=== PATIENT | male | born 1965 | race Caucasian/White ===

== ENCOUNTER 2024-07-08 18:43 | Inpatient (IN) | payer BC, SELFPAY ==
[2024-07-08] VITALS (9 sets, daily range): BP systolic 122–181; BP diastolic 60–114; BMI 33.5; BMI 32.4; BMI 34.4
[2024-07-08 16:01] LABS: % Basophils 0.3 % (0-2); % Eosinophils 3.2 % (0-6); % Immature Granulocytes 0.3 % (0-0.5); % Lymphocytes 24.3 % (20.5-51.1); % Monocytes 8.3 % (1.7-9.3); % Neutrophils 63.6 % (42.2-75.2); Absolute Eosinophils 0.2 10^3/uL (0-0.7); Absolute Lymphocytes 1.6 10^3/uL (1.2-3.4); Absolute Monocytes 0.5 10^3/uL (0.1-0.6); Absolute Neutrophils 4.1 10^3/uL (1.4-6.5); Hematocrit 41.4 % (39.0-52.0); Hemoglobin 14.1 g/dL (13.0-18.0); Mean Corp Hgb Conc. 34.1 g/dL (33.0-37.0); Mean Corpuscular Hgb 29.5 pg (27.0-31.0); Mean Corpuscular Volume 86.6 fL (80.0-94.0); Mean Platelet Volume 9.8 fL (7.4-10.4); Nucleated Red Blood Cells % 0 % (-); Platelet Count 191 10^3/uL (130-400); Red Blood Cell Count 4.78 10^6/uL (4.70-6.10); Red Cell Dist. Width 12.1 % (11.5-14.5); White Blood Cell Count 6.5 10^3/uL (4.8-10.8)
[2024-07-08 16:13] LABS: INR 0.98; PT 13.3 Sec (11.4-14.6)
[2024-07-08 16:25] LABS: ALT (SGPT) 52 U/L (0-50); AST (SGOT) 26 U/L (17-59); Albumin 4.9 g/dl (3.5-5.0); Alkaline Phosphatase 52 U/L (38-126); Blood Urea Nitrogen 20 mg/dl (9-20); Calcium 9.9 mg/dl (8.4-10.2); Carbon Dioxide 26 mmol/L (22-30); Chloride 102 mmol/L (98-107); Glucose 97 mg/dl (70-99); Potassium 4.4 mmol/L (3.5-5.1); Sodium 144 mmol/L (135-145); Total Protein 7.7 g/dl (6.3-8.2); eGFR > 60.00
--- NOTE | 2024-07-08 17:03 | ED.GENMED ---
History of Present Illness
<Denise Wilson COMPLIANCE MONITOR - Last Filed: 07/08/24 20:20>
General
Chief Complaint: Cardiac Symptoms
Source: patient
Exam Limitations: none
Time Seen by Provider: 07/08/24 16:46
Nursing documentation reviewed up to this point in time: agreed with
History of Present Illness
History of Present Illness:
59-year-old male with history HTN, HLDcardiac stent x 2, of chronic throat tightness 'for years,' went to PCP this a.m. due to increasing tightness 'way down deep in my throat' gets worse with exertion, today worse with even minor exertion so went
to PCP, had EKG showing changes, sent to Cardiology office, then sent here for: for evaluation of exertional throat tightness with new EKG changes, NSR w/ inferior Qs but new ST abnormality, ST depression I, aVL. Currently pain-free but has been
having progressively worsening exertional throat tightness. No chest pain. Has history of CAD status post stents in 2020. . Denies tightness this time, 'only when I do anything.' Denies CP or SOB. Denies n/v/diaphoresis, palpitations,
lightheadedness.
Past History
<Denise Wilson COMPLIANCE MONITOR - Last Filed: 07/08/24 20:20>
Past History
ED Past Medical History: Other (Back pain)
ED Past Surgical History: None
Social History
Tobacco: Smoker (5 cigarettes a day)
Alcohol: Occasional
Personal:
Living: with family
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
Review of Systems
<Denise Wilson COMPLIANCE MONITOR - Last Filed: 07/08/24 20:20>
Review of Systems
Allergies reviewed?: Yes
All Other Systems: ROS reviewed and negative except as documented in HPI and ROS
Constitutional: Denies fever or fatigue
EENT: Reports other ('Tightness' in throat, with any even minor exertion, denies feeling it at this time)
Respiratory: Denies trouble breathing
Cardiac: Denies chest pain, diaphoresis or palpitations
ABD/GI: Denies abdominal pain, nausea or vomiting
Musculoskeletal: Reports no symptoms
Skin: Reports no symptoms
Neurological: Reports no symptoms
Phy Exam
<Denise Wilson, COMPLIANCE MONITOR - Last Filed: 07/08/24 20:20>
Physical Exam
Physical Exam:
GENERAL: No acute distress. A&Ox3.
CONSTITUTIONAL: Afebrile.
EYES: clear, conjunctivae normal
ENMT: moist mucus membranes, Pharynx nl
RESPIRATORY: Regular respirations, nonlabored, lungs clear.
CARDIOVASCULAR: Regular rate and rhythm, no murmurs, no rubs.
GI: Soft, nontender, normal BS
MUSCULOSKELETAL: Moves with ease. Well perfused.
SKIN: Warm, dry, pink
PSYCH: Normal mood and affect. Well kept, interactive and appropriate
NEUROLOGIC: Awake, alert and oriented. No focal neurological deficits
Course
<Denise Wilson, COMPLIANCE MONITOR - Last Filed: 07/08/24 20:20>
Orders/Labs/Results
Orders:
Orders
07/08/24 Breakfast
Cholesterol Lowering
At Your Request: Full Participation
Cholesterol Lowering: Sodium, 2 Gram
07/08/24 15:13
EKG [Electrocardiogram (*1)] Urgent
Reason for Study: Abnormal EKG
EKG- Treatment ONCE
07/08/24 15:55
Complete Blood Count/With Diff Urgent
Comprehensive Metabolic Panel Urgent
Prothrombin Time Urgent
Troponin I Urgent
07/08/24 16:53
EKG [Electrocardiogram (*1)] Urgent
Reason for Study: Chest Pain
EKG- Treatment ONCE
07/08/24 16:54
Aspirin 325 mg PO NOW STA
07/08/24 16:55
CR Chest Portable - 1 View Urgent
Comment:
Reason For Exam: throat pain, elevated Troponin
Reason Study Needs to be Portable: Patient Unstable
07/08/24 16:56
Nitroglycerin Sublingual [Nitrostat (Sublingual)] 0.4 mg SL NOW STA
07/08/24 17:24
CARDIOLOGY CONSULT Urgent
Consulting Provider: Talha Martinez
Was physician already notified: Yes
Reason for consult: subacute [place]
07/08/24 17:47
Heparin 4,000 units IV NOW STA
Nursing to Place Non Medication Order As Directed
Physician Order: PTT 6 hours after initial start of Heparin infusion
Above order entered?: Yes
07/08/24 17:59
PTT Urgent
Comment: Obtain baseline before beginning heparin infusion if not already collected
07/08/24 18:00
Heparin 50972 Units/250 ml 25,000 units in 250 ml IV PER PROTOCOL
Weight to be used for heparin protocol in kilograms (kg):: 100
Protocol:: Cardiac Tx/Acute Coronary
PTT Goal Range to be used:: PTT 73 to 111 seconds
Order type:: Initial
INITIAL Infusion Dose (UNITS/KG/hr) & then follow protocol:: 12 units/kg/hr
Infusion Dose in UNITS/hr & then follow protocol (UNITS/hr):: 1,000
INFUSION RATE in mL/hr & then follow protocol (mL/hr):: 10
PTT less than or equal to 64 seconds:: Increase rate by 200 units/hr (+ 2 mL/hr)
PTT 64.1 to 72.9 seconds:: Increase rate by 100 units/hr (+ 1 mL/hr)
PTT 73 to 111 seconds:: Target Range. No change in rate.
PTT 111.1 to 130.9 seconds:: Decrease rate by 100 units/hr (- 1 mL/hr)
PTT 131 to 199.9 seconds:: HOLD for 1 hr. Then decrease rate by 200 units/hr (- 2 mL/hr)
PTT greater than or equal to 200 seconds:: HOLD for 2 hrs & Notify Provider. Then decrease by 200 units/hr (-
2 mL/hr)
Lab follow-up:: Each change, PTT q6h until 2 consecutive are therapeutic. Then PTT
daily.
07/08/24 18:09
Admit/Transfer Patient As Directed
Co-Sign Provider:
Level of Care: Inpatient admission
Assign to:: IVU
Physician / Group: maia
Diagnosis: NSTEMI
Reason for Hospitalization: NSTEMI
Expected length of stay greater than two midnights?: Yes
ELOS- Estimated Length of Stay in days: 3
I certify the patient meets the requirements for IP care: Yes
07/08/24 18:10
PRN Pain Medication Management As Directed
May give lesser potent ordered pain med per pt: Yes
preference::
Protocol:: Medication orders for pain may be administered in a
manner that supports deferring to patient preference
when the pt is:
- Requesting an ordered lesser potent pain medication.
Least to most potent pain medications are defined
as: acetaminophen < NSAID < tramadol < opioids
(morphine, oxycodone, hydromorphone).
- Requesting a lesser dose of the same medication IF
ORDERED.
- Requesting a less intrusive route of administration
if both routes are prescribed by the provider (PO <
IV).
07/08/24 18:11
Code Status As Directed
Resuscitation Status: Full Code
07/08/24 18:26
PRN Pain Medication Management As Directed
May give lesser potent ordered pain med per pt: Yes
preference::
Protocol:: Medication orders for pain may be administered in a
manner that supports deferring to patient preference
when the pt is:
- Requesting an ordered lesser potent pain medication.
Least to most potent pain medications are defined
as: acetaminophen < NSAID < tramadol < opioids
(morphine, oxycodone, hydromorphone).
- Requesting a lesser dose of the same medication IF
ORDERED.
- Requesting a less intrusive route of administration
if both routes are prescribed by the provider (PO <
IV).
07/08/24 19:08
Acetaminophen [Tylenol] 650 mg PO Q6HPRN PRN
07/08/24 19:08
Echo 2D MMode Color/Doppler Routine
Reason for Study: chest pain
Heparin Protocol- PTT Orders As Directed
PTT per Heparin protocol: -Obtain CBC and baseline PTT - if not already collected.
-Obtain PTT 6 hours from start of infusion. Then, every 6 hours until 2 consecutive
PTT's are therapeutic. Then, PTT Daily.
-With each rate change, obtain PTT every 6 hours until 2 consecutive PTT's are
therapeutic. Then, PTT Daily.
Activity As Directed
Activity Level: As Tolerated
INT (Intravenous Needle Therapy) As Directed
Comment: maintain peripheral IV access
Intake/ Output As Directed
Frequency: Per unit guidelines
Notify MD As Directed
Notify physician if: PTT is greater than or equal to 200.
Vital Signs As Directed
Frequency: q4h
Weight As Directed
Frequency: Daily
07/08/24 19:24
Glycohemoglobin (HgbA1c) Routine
Troponin I Q3H
Comment: at admit & Q3H for 3 total including ED draws, obtain ECG with each level
07/08/24 20:00
Ascorbic Acid [Vitamin C] 500 mg PO BID
glucos sul [id number]-Mn [Glucosamine Chondroitin] 1 cap PO BID
vitamin D3-vitamin K2 (MK4) 1 tablet PO BID
07/08/24 22:00
Electrocardiogram (*1) Q6H
Reason for Study: Chest Pain
Comment: at admission and Q3H for total of 3, to be done with each troponin
omega 1-vsd-rbq-fish oil [Fish Oil] 1 cap PO TID
07/08/24 22:08
Troponin I Q3H
Comment: at admit & Q3H for 3 total including ED draws, obtain ECG with each level
07/09/24 00:24
PTT Urgent
07/09/24 04:00
Electrocardiogram (*1) Q6H
Reason for Study: Chest Pain
Comment: at admission and Q3H for total of 3, to be done with each troponin
07/09/24 Breakfast
NPO
Allow oral meds: Yes
Allow clear liquids: No
NPO for procedure after (time): 07/09/2024 0000
Cardiovascular Evaluation IN AM
07/09/24 08:00
Amlodipine [Norvasc] 5 mg PO DAILY
Aspirin Chewable [Low Strength Aspirin] 81 mg PO DAILY
Atorvastatin [Lipitor] 80 mg PO DAILY
Ezetimibe [Zetia] 10 mg PO DAILY
Famotidine [Pepcid] 20 mg PO DAILY
Multivitamin [Theragran] 1 tablet PO DAILY
lisinopril 40 mg PO DAILY
07/10/24 06:00
Complete Blood Count/No Diff Q2D
Comment: notify provider: Platelet count < 130,000 or decrease by 50% from baseline
07/10/24 11:00
DC Protocol for Telemetry ONCE
07/12/24 06:00
Complete Blood Count/No Diff Q2D
Comment: notify provider: Platelet count < 130,000 or decrease by 50% from baseline
07/14/24 06:00
Complete Blood Count/No Diff Q2D
Comment: notify provider: Platelet count < 130,000 or decrease by 50% from baseline
07/16/24 06:00
Complete Blood Count/No Diff Q2D
Comment: notify provider: Platelet count < 130,000 or decrease by 50% from baseline
07/18/24 06:00
Complete Blood Count/No Diff Q2D
Comment: notify provider: Platelet count < 130,000 or decrease by 50% from baseline
07/20/24 06:00
Complete Blood Count/No Diff Q2D
Comment: notify provider: Platelet count < 130,000 or decrease by 50% from baseline
07/22/24 06:00
Complete Blood Count/No Diff Q2D
Comment: notify provider: Platelet count < 130,000 or decrease by 50% from baseline
07/24/24 06:00
Complete Blood Count/No Diff Q2D
Comment: notify provider: Platelet count < 130,000 or decrease by 50% from baseline
Abnormal Lab Results
07/08/24
15:55
ALT 52 H U/L
(0-50)
Troponin I 3.640 H* ng/ml
07/08/24 15:55
07/08/24 15:55
Vital Signs
Initial and Last Documented VS:
Initial Vital Signs
Temp Pulse Resp BP Pulse Ox
98.4 F 52 16 148/85 100
07/08/24 15:18 07/08/24 15:18 07/08/24 15:18 07/08/24 15:18 07/08/24 15:18
Last Documented Vital Signs
Temp Pulse Resp BP Pulse Ox
98.4 F 69 18 161/102 96
07/08/24 15:18 07/08/24 19:30 07/08/24 19:30 07/08/24 19:00 07/08/24 19:30
License Examiner consulted with Physician
License Examiner consulted with physician?: Yes
Name of Physician Consulted: Tania
<Nohelia Mayo DO - Last Filed: 07/08/24 20:05>
Orders/Labs/Results
Orders:
Orders
07/08/24 Breakfast
Cholesterol Lowering
At Your Request: Full Participation
Cholesterol Lowering: Sodium, 2 Gram
07/08/24 15:13
EKG [Electrocardiogram (*1)] Urgent
Reason for Study: Abnormal EKG
EKG- Treatment ONCE
07/08/24 15:55
Complete Blood Count/With Diff Urgent
Comprehensive Metabolic Panel Urgent
Prothrombin Time Urgent
Troponin I Urgent
07/08/24 16:53
EKG [Electrocardiogram (*1)] Urgent
Reason for Study: Chest Pain
EKG- Treatment ONCE
07/08/24 16:54
Aspirin 325 mg PO NOW STA
07/08/24 16:55
CR Chest Portable - 1 View Urgent
Comment:
Reason For Exam: throat pain, elevated Troponin
Reason Study Needs to be Portable: Patient Unstable
07/08/24 16:56
Nitroglycerin Sublingual [Nitrostat (Sublingual)] 0.4 mg SL NOW STA
07/08/24 17:24
CARDIOLOGY CONSULT Urgent
Consulting Provider: Talha Martinez
Was physician already notified: Yes
Reason for consult: subacute [place]
07/08/24 17:47
Heparin 4,000 units IV NOW STA
Nursing to Place Non Medication Order As Directed
Physician Order: PTT 6 hours after initial start of Heparin infusion
Above order entered?: Yes
07/08/24 17:59
PTT Urgent
Comment: Obtain baseline before beginning heparin infusion if not already collected
07/08/24 18:00
Heparin 95139 Units/250 ml 25,000 units in 250 ml IV PER PROTOCOL
Weight to be used for heparin protocol in kilograms (kg):: 100
Protocol:: Cardiac Tx/Acute Coronary
PTT Goal Range to be used:: PTT 73 to 111 seconds
Order type:: Initial
INITIAL Infusion Dose (UNITS/KG/hr) & then follow protocol:: 12 units/kg/hr
Infusion Dose in UNITS/hr & then follow protocol (UNITS/hr):: 1,000
INFUSION RATE in mL/hr & then follow protocol (mL/hr):: 10
PTT less than or equal to 64 seconds:: Increase rate by 200 units/hr (+ 2 mL/hr)
PTT 64.1 to 72.9 seconds:: Increase rate by 100 units/hr (+ 1 mL/hr)
PTT 73 to 111 seconds:: Target Range. No change in rate.
PTT 111.1 to 130.9 seconds:: Decrease rate by 100 units/hr (- 1 mL/hr)
PTT 131 to 199.9 seconds:: HOLD for 1 hr. Then decrease rate by 200 units/hr (- 2 mL/hr)
PTT greater than or equal to 200 seconds:: HOLD for 2 hrs & Notify Provider. Then decrease by 200 units/hr (-
2 mL/hr)
Lab follow-up:: Each change, PTT q6h until 2 consecutive are therapeutic. Then PTT
daily.
07/08/24 18:09
Admit/Transfer Patient As Directed
Co-Sign Provider:
Level of Care: Inpatient admission
Assign to:: IVU
Physician / Group: maia
Diagnosis: NSTEMI
Reason for Hospitalization: NSTEMI
Expected length of stay greater than two midnights?: Yes
ELOS- Estimated Length of Stay in days: 3
I certify the patient meets the requirements for IP care: Yes
07/08/24 18:10
PRN Pain Medication Management As Directed
May give lesser potent ordered pain med per pt: Yes
preference::
Protocol:: Medication orders for pain may be administered in a
manner that supports deferring to patient preference
when the pt is:
- Requesting an ordered lesser potent pain medication.
Least to most potent pain medications are defined
as: acetaminophen < NSAID < tramadol < opioids
(morphine, oxycodone, hydromorphone).
- Requesting a lesser dose of the same medication IF
ORDERED.
- Requesting a less intrusive route of administration
if both routes are prescribed by the provider (PO <
IV).
07/08/24 18:11
Code Status As Directed
Resuscitation Status: Full Code
07/08/24 18:26
PRN Pain Medication Management As Directed
May give lesser potent ordered pain med per pt: Yes
preference::
Protocol:: Medication orders for pain may be administered in a
manner that supports deferring to patient preference
when the pt is:
- Requesting an ordered lesser potent pain medication.
Least to most potent pain medications are defined
as: acetaminophen < NSAID < tramadol < opioids
(morphine, oxycodone, hydromorphone).
- Requesting a lesser dose of the same medication IF
ORDERED.
- Requesting a less intrusive route of administration
if both routes are prescribed by the provider (PO <
IV).
07/08/24 19:08
Acetaminophen [Tylenol] 650 mg PO Q6HPRN PRN
07/08/24 19:08
Echo 2D MMode Color/Doppler Routine
Reason for Study: chest pain
Heparin Protocol- PTT Orders As Directed
PTT per Heparin protocol: -Obtain CBC and baseline PTT - if not already collected.
-Obtain PTT 6 hours from start of infusion. Then, every 6 hours until 2 consecutive
PTT's are therapeutic. Then, PTT Daily.
-With each rate change, obtain PTT every 6 hours until 2 consecutive PTT's are
therapeutic. Then, PTT Daily.
Activity As Directed
Activity Level: As Tolerated
INT (Intravenous Needle Therapy) As Directed
Comment: maintain peripheral IV access
Intake/ Output As Directed
Frequency: Per unit guidelines
Notify MD As Directed
Notify physician if: PTT is greater than or equal to 200.
Vital Signs As Directed
Frequency: q4h
Weight As Directed
Frequency: Daily
07/08/24 19:24
Glycohemoglobin (HgbA1c) Routine
Troponin I Q3H
Comment: at admit & Q3H for 3 total including ED draws, obtain ECG with each level
07/08/24 20:00
Ascorbic Acid [Vitamin C] 500 mg PO BID
glucos sul [id number]-[id number]-Mn [Glucosamine Chondroitin] 1 cap PO BID
vitamin D3-vitamin K2 (MK4) 1 tablet PO BID
07/08/24 22:00
Electrocardiogram (*1) Q6H
Reason for Study: Chest Pain
Comment: at admission and Q3H for total of 3, to be done with each troponin
omega 9-leu-jnd-fish oil [Fish Oil] 1 cap PO TID
07/08/24 22:08
Troponin I Q3H
Comment: at admit & Q3H for 3 total including ED draws, obtain ECG with each level
07/09/24 00:24
PTT Urgent
07/09/24 04:00
Electrocardiogram (*1) Q6H
Reason for Study: Chest Pain
Comment: at admission and Q3H for total of 3, to be done with each troponin
07/09/24 Breakfast
NPO
Allow oral meds: Yes
Allow clear liquids: No
NPO for procedure after (time): 07/09/2024 0000
Cardiovascular Evaluation IN AM
07/09/24 08:00
Amlodipine [Norvasc] 5 mg PO DAILY
Aspirin Chewable [Low Strength Aspirin] 81 mg PO DAILY
Atorvastatin [Lipitor] 80 mg PO DAILY
Ezetimibe [Zetia] 10 mg PO DAILY
Famotidine [Pepcid] 20 mg PO DAILY
Multivitamin [Theragran] 1 tablet PO DAILY
lisinopril 40 mg PO DAILY
07/10/24 06:00
Complete Blood Count/No Diff Q2D
Comment: notify provider: Platelet count < 130,000 or decrease by 50% from baseline
07/10/24 11:00
DC Protocol for Telemetry ONCE
07/12/24 06:00
Complete Blood Count/No Diff Q2D
Comment: notify provider: Platelet count < 130,000 or decrease by 50% from baseline
07/14/24 06:00
Complete Blood Count/No Diff Q2D
Comment: notify provider: Platelet count < 130,000 or decrease by 50% from baseline
07/16/24 06:00
Complete Blood Count/No Diff Q2D
Comment: notify provider: Platelet count < 130,000 or decrease by 50% from baseline
07/18/24 06:00
Complete Blood Count/No Diff Q2D
Comment: notify provider: Platelet count < 130,000 or decrease by 50% from baseline
07/20/24 06:00
Complete Blood Count/No Diff Q2D
Comment: notify provider: Platelet count < 130,000 or decrease by 50% from baseline
07/22/24 06:00
Complete Blood Count/No Diff Q2D
Comment: notify provider: Platelet count < 130,000 or decrease by 50% from baseline
07/24/24 06:00
Complete Blood Count/No Diff Q2D
Comment: notify provider: Platelet count < 130,000 or decrease by 50% from baseline
Abnormal Lab Results
07/08/24
15:55
ALT 52 H U/L
(0-50)
Troponin I 3.640 H* ng/ml
07/08/24 15:55
07/08/24 15:55
Vital Signs
Initial and Last Documented VS:
Initial Vital Signs
Temp Pulse Resp BP Pulse Ox
98.4 F 52 16 148/85 100
07/08/24 15:18 07/08/24 15:18 07/08/24 15:18 07/08/24 15:18 07/08/24 15:18
Last Documented Vital Signs
Temp Pulse Resp BP Pulse Ox
98.4 F 69 18 161/102 96
07/08/24 15:18 07/08/24 19:30 07/08/24 19:30 07/08/24 19:00 07/08/24 19:30
<Denise Wilson COMPLIANCE MONITOR - Last Filed: 07/08/24 20:20>
MDM/Problems Addressed
MDM/Problems Addressed:
59-year-old male with history HTN, HLDcardiac stent x 2, of chronic throat tightness 'for years,' went to PCP this a.m. due to increasing tightness 'way down deep in my throat' gets worse with exertion, today worse with even minor exertion so went
to PCP, had EKG showing changes, sent to Cardiology office, then sent here for: for evaluation of exertional throat tightness with new EKG changes, NSR w/ inferior Qs but new ST abnormality, ST depression I, aVL. Currently pain-free but has been
having progressively worsening exertional throat tightness. No chest pain. Has history of CAD status post stents in 2020. . Denies tightness this time, 'only when I do anything.' Denies CP or SOB. Denies n/v/diaphoresis, palpitations,
lightheadedness.
Dr. Marin at bedside.
Troponin 3.640.
Gave ASA and NTG.
Consulted Division Chair Dr. Mckeon who requests admit to Hospitalist for subacute [place] and Heparin drip.
<Nohelia Mayo DO - Last Filed: 07/08/24 20:05>
*Critical Care Note
Total Time (30-74mins, 75-104mins- exclusive of procedures): 38
comment:
The high probability of a clinically significant, sudden or life threatening deterioration of the cardiovascular/NSTEMI system(s) required my full and direct attention, intervention and personal management. The aggregate critical care time was 38
minutes. This time is in addition to time spent performing reported procedures but includes the following:
[x] Data Review and interpretation
[x] Patient assessment and monitoring of vital signs
[x] Documentation
[x] Medication orders and management
ED Attending Note
<Denise Wilson COMPLIANCE MONITOR - Last Filed: 07/08/24 20:20>
-
Portions of this chart may have been created with voice recognition software.� Occasional wrong word or��sound alike� substitutions may have occurred due to the inherent limitations of voice recognition software.
<Nohelai Mayo DO - Last Filed: 07/08/24 20:05>
ED Attending Note
Patient seen and examined by attending physician: Yes
I performed the substantive portion of visit, reviewed & personally made and approve the management plan that is documented in note by myself or ARIANA.: Yes
I performed a history and physical exam of patient and discussed management with resident, I reviewed resident's note and agree with documented findings and plan of care.: Yes
ED Attending Note:
59-year-old male with significant cardiac history including stents, hypertension, hyperlipidemia presenting to the emergency department for abnormal EKG. Patient went to his doctor with complaint of 'deep throat 'pain every time he exerts himself.
Reports been ongoing since the summertime, however has been progressively worsening with within the past week. Notes that he has a bleeding time he exerts himself. At the doctor's office, that showed ST elevation inferiorly, sent to the emergency
department for concern of acute ischemia. On arrival to the hospital, patient presently denying any acute chest pain or difficulty breathing. He has no acute complaints other than the throat pain that he feels with exertion. Vital signs
significant for hypertension. Patient notes compliance with his medications.
On exam patient is resting comfortably with unremarkable cardiac and pulmonary exam. EKG repeated upon arrival, again abnormal with ST elevations inferiorly and minimal ST depression to aVL. Patient initially seen in triage, laboratory analysis
obtained including troponin. Troponin noted to be elevated. At this time concern for NSTEMI. Plan for cardiac consultation. Will administer aspirin and nitro for blood pressure purposes.
17:20 - In discussion with cardiology, agrees NSTEMI. Plan for heparin drip and cardiac consultation, likely catheterization
Discharge Plan
Departure
Patient Disposition: Admit
Date of Disposition: 07/08/24
Time of Disposition: 17:56
Admit to: Telemetry
Presentation/result/management discussed w/ accepting MD/DO: Hospitalist
Condition: Good
Discharge Problem:
Myocardial infarction
Interventions
Interventions:
*Risk Screen - Suicide Last Done: 07/08/24 15:18
*General Assessment Last Done: 07/08/24 15:18
*Neglect/Abuse Screening Last Done: 07/08/24 15:18
*ED COVID-19 Vaccine History Last Done: 07/08/24 15:18
ED- Pulmonary Assessment Last Done: 07/08/24 16:45
ED- Cardiac Assessment Last Done: 07/08/24 16:45
[2024-07-08] MEDS: NITROSTAT (SUBLINGUAL) 0.4 MG SL (17:06)
[2024-07-08] MEDS: ASPIRIN 325 MG PO (17:06)
--- NOTE | 2024-07-08 17:57 | HPS.HSE ---
Addendum entered and electronically signed by Ever Dejesus MD 07/08/24 18:26:
Chest x-ray was clear.
History of tobacco abuse would recommend outpatient follow-up with primary doctor pulmonary for lung cancer screening eventually.
Addendum entered and electronically signed by Ever Dejesus MD 07/08/24 18:24:
I saw and examined the patient.
The DISTRIBUTION OPERATION SUPERVISOR's note was reviewed and I agree with the note.
Comment:
59-year-old male past medical history of CAD status post stents, hx tobacco abuse, primary hypertension, hyperlipidemia, lumbar radiculopathy, is presenting from cardiology office with complaints of throat tightness. States of throat tightness only
with exertion. Had intermittent chest pain which patient stated he related to musculoskeletal due to heavy lifting at work. Also states of intermittent pain chest epigastric which he related to heartburn. Patient with history of coronary artery
disease. Patient went to see primary doctor and was referred to cardiology. Patient with abnormal EKG. In the ER patient was found to have elevated troponin. Denies any odontophagia or dysphagia.
General: Well Developed, Well Nourished and No Apparent Distress
HEENT: NormoCephalic, Moist mucous membranes and Atraumatic
Respiratory: Clear, No stridor, speaking in full sentences.
Cardiac: S1/S2 and Regular Rhythm; No Murmur or Rub
GI: Soft, Non Tender, Non Distended and Normal Bowel Sounds; No Organomegaly
Rectal: Deferred by Provider
Musculoskeletal: No Clubbing, No Cyanosis and No Edema
Skin: No Rash
Neuro: AO x 3 and Nonfocal/grossly intact
Psych: Calm
Impression
NSTEMI
Primary hypertension
CAD status post x 2
Hyperlipidemia
Tobacco abuse
History of sinus bradycardia
Mildly abnormal liver enzymes
Plan
Heparin drip
Trend troponin
Echocardiogram
N.p.o. past midnight in case for cardiac catheterization
Continue home medication
Continue with aspirin
Check lipid panel and A1c
If no improvement in symptomology of throat tightness postcardiac stabilization then can consider video swallow evaluation.
DVT prophylaxis with heparin infusion
I spent a total of 80 minutes with the patient or on the floor. More than 50% of this time involved counseling and coordination of care.
Original Note:
Family Physician
-
Family Physician: EZIO Mcleod
Chief Complaint
-
Throat tightness
History of Present Illness
[age]-year-old male with history HTN, HLDcardiac stent x 2, of chronic throat tightness which got worse for past few weeks . Patient stated throat tightness with exertion. Patient denied any chest pain or short of breath . Patient denied any
headache or dizzy or syncope . Patient denied any fever, chills, cough congestion . Patient denied any abdominal pain, nausea, vomiting or diarrhea. Patient denied dysuria hematuria. He was evaluated by his PCP today, had EKG showing changes,
sent to Cardiology office, then sent here for: for evaluation of exertional throat tightness with new EKG changes.
Upon arrival noted to have elevated troponin. Admitting for further management. patient is initiated on heparin drip
Medical History
Past Medical History
Past Medical History: Reports Other
Additional Past Medical History:
Coronary artery disease
Hyperlipidemia
Hypertension
Past Surgical History: Reports Other
Additional Past Surgical History:
Cardiac stent
Social History
Tobacco: Former Smoker
Alcohol: None
Drug: None
Personal:
Living: With Family
Family History
Family History: Not pertinent
Allergies / Home Medications
Allergies reflects when Allergies were last updated in [facility].
Home Medications with original date entered in [facility]
Allergy/Medication List:
Allergies
Allergy/AdvReac Type Severity Reaction Status Date / Time
cat dander Allergy Unknown Verified 07/08/24 15:21
No Known Drug Allergies Allergy Unknown Verified 07/08/24 15:21
shellfish derived Allergy itchy eyes Verified 07/08/24 15:21
Yeast Allergy Itching Verified 07/08/24 15:21
Home Medications
aspirin 81 mg tablet,delayed release 81 mg PO DAILY 10/17/15
cholecalciferol (vitamin D3) 125 mcg (5,000 unit) capsule 5,000 unit PO DAILY 10/17/15
docosahexaenoic acid (dha)-epa 120 mg-180 mg capsule 1 cap PO TID 10/17/15
multivitamin (One-A-Day Essential tablet) 1 ea PO DAILY 10/17/15
Vitamin C: 1 tab PO TID 05/26/20
amlodipine 5 mg tablet 5 mg PO DAILY #30 tabs 11/18/20
atorvastatin 80 mg tablet 80 mg PO QPM #30 tabs 11/18/20
chlorthalidone 25 mg tablet 25 mg PO DAILY #30 tabs 11/18/20
clopidogrel 75 mg tablet 75 mg PO DAILY #90 tabs 11/18/20
lisinopril 40 mg tablet 40 mg PO DAILY #30 tabs 11/18/20
Review of Systems
-
Constitutional: Reports No Symptoms
EENT: Reports Other (Throat tightness)
Respiratory: Reports No Symptoms
Cardiac: Reports No Symptoms
Abdomen/GI: Reports No Symptoms
: Reports No Symptoms
Musculoskeletal: Reports No Symptoms
Skin: Reports No Symptoms
Neurological: Reports No Symptoms
Endocrine: Reports No Symptoms
Hematologic/Lymphatic: Reports No Symptoms
Psych: Reports No Symptoms
Physical Exam
Vital Signs
Vital Signs
Temp Pulse Resp BP Pulse Ox
98.4 F 60 22 166/77 98
07/08/24 15:18 07/08/24 17:45 07/08/24 17:45 07/08/24 17:12 07/08/24 17:45
Physical Exam
General: Well Developed, Well Nourished and No Apparent Distress
HEENT: NormoCephalic, Moist mucous membranes and Atraumatic
Respiratory: Clear
Cardiac: S1/S2 and Regular Rhythm; No Murmur or Rub
GI: Soft, Non Tender, Non Distended and Normal Bowel Sounds; No Organomegaly
Rectal: Deferred by Provider
Musculoskeletal: No Clubbing, No Cyanosis and No Edema
Skin: No Rash
Neuro: AO x 3 and Nonfocal/grossly intact
Psych: Calm
Laboratory Results
-
07/08/24 15:55
07/08/24 15:55
Laboratory Results
PT 13.3 Sec (11.4-14.6) 07/08/24 15:55
INR 0.98 07/08/24 15:55
Total Bilirubin 1.0 mg/dl (0.2-1.3) 07/08/24 15:55
AST 26 U/L (17-59) 07/08/24 15:55
ALT 52 U/L (0-50) H 07/08/24 15:55
Alkaline Phosphatase 52 U/L (38-126) 07/08/24 15:55
Troponin I 3.640 ng/ml H* 07/08/24 15:55
Data Reviewed
-
Lab Data: Labs Reviewed by me
Impression/Plan
-
# Throat tightness/elevated troponin likely NSTEMI
-Heparin drip continued
-Chest x-ray negative for acute disease
-EKG with sinus bradycardia
-Aspirin continued
-Will keep n.p.o. after midnight
-Cardiology consulted
-Trend troponin EKG
# Essential hypertension
-Norvasc, lisinopril continue with hold parameters
# Hyperlipidemia
-Zetia and atorvastatin continued
History of coronary artery disease
# Cardiac stents
# DVT prophylaxis
-Heparin drip-
# CODE STATUS
-Full code
[2024-07-08] MEDS: HEPARIN 4000 UNITS IV (18:21)
[2024-07-08 18:22] LABS: APTT 29.6 Sec (23.4-35.0)
[2024-07-08] MEDS: HEPARIN 25000 UNITS/250 ML IV (18:24)
--- NOTE | 2024-07-08 18:50 | CON.CAR ---
Consultation
Consultation Request
Date/Time Consultation Requested: 07/08/24 5:02pm
Date/Time Consultation Performed: 07/08/24 6:30pm
Requesting Provider: EZIO Garcia
Performing Provider: Dr. Michelle MD
Reason for Consultation: DE
Medical History
-
Chief Complaint: throat pain
History of Present Illness:
He has a past medical history of hypertension, hyperlipidemia, CAD and tobacco abuse. He also has a family history of coronary artery disease in his father and mother. Lipids had LDL of 183, HDL 38 and triglycerides of 141.
Stress echo November 16, 2020 had normal imaging at 9 METs, however he had shortness of breath and left shoulder pain with stress testing.
Cardiac catheterization 11/18/2020 revealed 70% mid LAD and 80% mid diagonal 2 stenosis.� He had successful drug-eluting stenting to both vessels. RCA had a long 30% distal stenosis. EF 70%.
He had been on dual antiplatelet therapy with Plavix and aspirin s/p stenting.��Plavix was stopped 05/2023.�
He presents today with continuing symptoms of progressive throat tightness. He has had the symptoms for several years and they have been worsening over the past several weeks. He gets a severe throat tightness with any exertional symptoms
especially walking up stairs, working, or walking with any pace. The symptoms worsened and he went to see his primary care physician today was found to have an abnormal EKG. He then was seen by cardiology and referred to emergency room for further
evaluation. He currently is pain-free but his symptoms have been worsening. He has noted some shortness of breath. He occasionally gets some right sided chest aches at times. He does not exercise much. He does work full-time. He denies any
orthopnea, PND, edema. He has no bleeding. He has no fevers or chills.
Past Medical History
Past Medical History: CAD (11/18/2020 revealed 70% mid LAD and 80% mid diagonal 2 stenosis.� He had successful drug-eluting stenting to both vessels. RCA had a long 30% distal stenosis. EF 70%.), HTN and Hypercholesterolemia
Social History
Tobacco: Former Smoker
Alcohol: Occasional
Drug: None
Personal:
Living: With Family
Employment: Employed
Family History
Family History: CAD and Hypertension
Allergies / Home Medications
Allergy/AdvReac Type Severity Reaction Status Date / Time
cat dander Allergy Unknown Verified 07/08/24 15:21
shellfish derived Allergy itchy eyes Verified 07/08/24 15:21
Yeast Allergy Itching Verified 07/08/24 15:21
�Medication �Instructions �Recorded �Confirmed �Type
aspirin 81 mg tablet,delayed 81 mg PO DAILY 10/17/15 07/08/24 History
release
amlodipine 5 mg tablet 5 mg PO DAILY #30 tabs 11/18/20 07/08/24 Rx
lisinopril 40 mg tablet 40 mg PO DAILY #30 tabs 11/18/20 07/08/24 Rx
ascorbic acid (vitamin C) 500 mg 500 mg PO BID 07/08/24 07/08/24 History
tablet (Vitamin C)
atorvastatin 80 mg tablet 80 mg PO DAILY 07/08/24 07/08/24 History
cholecalciferol (vit D3) 1,000 1 tab PO BID 07/08/24 07/08/24 History
unit-vitamin K2 (MK4) 100 mcg
tablet
ezetimibe 10 mg tablet 10 mg PO DAILY 07/08/24 07/08/24 History
glucosamine sulf dipot 1 cap PO BID 07/08/24 07/08/24 History
chlr,msm,chond 550 mg-C 30 mg-tima
1 mg capsule (Glucosamine
Chondroitin)
omega 3-pnu-shs-fish oil 1,000 mg 1 cap PO TID 07/08/24 07/08/24 History
(120 mg-180 mg) capsule (Fish Oil)
therapeutic multivitamin 1 tab PO DAILY 07/08/24 07/08/24 History
Review of Systems
-
History Source: Patient
Constitutional: Fatigue
EENT: Sore Throat
Respiratory: Trouble Breathing
Cardiac: Chest Pain
Abdomen/GI: Abdominal Pain (heartburn)
: No Symptoms
Musculoskeletal: No Symptoms
Skin: No Symptoms
Neurological: No Symptoms
Endocrine: No Symptoms
Hematologic/Lymphatic: No Symptoms
Physical Exam
Vital Signs
Temp Pulse Resp BP Pulse Ox
98.4 F 71 20 163/93 99
07/08/24 15:18 07/08/24 18:30 07/08/24 18:30 07/08/24 18:00 07/08/24 18:30
Lab Results
07/08/24 15:55
07/08/24 15:55
Troponin I 3.640 ng/ml H* 07/08/24 15:55
Physical Exam
General: Well Developed, Well Nourished and No Apparent Distress
HEENT: Normocephalic and Anicteric
Cardiac: S1/S2 and Regular Rhythm
GI: Soft, Non Tender and Non Distended
Musculoskeletal: No Clubbing and No Edema
Skin: Warm and Dry
Neuro: AO x 3
Hematologic/Lymphatic: No Lymphadenopathy
Psych: Calm
Impression / Plan
-
Assess:
NonSTEMI/unstable angina
History of CAD status post LAD/D1 stents 2020
Hypertension
Hyperlipidemia
Prior tobacco abuse
Cath 11/18/2020 revealed 70% mid LAD and 80% mid diagonal 2 stenosis.� He had successful drug-eluting stenting to both vessels. RCA had a long 30% distal stenosis. EF 70%.
PLan:
He presents with unstable angina and a non-STEMI. Continue aspirin and start IV heparin. With his multivessel disease I would hold off on restarting Plavix for now.
Plan will be for n.p.o. and cardiac cath in the a.m. Check echo in a.m.
Continue atorvastatin 80 mg daily. Check lipids.
Continue lisinopril and amlodipine. He has not tolerated beta-blockers in the past due to bradycardia. Will hold off for now.
Data Reviewed
-
EKG: Report Reviewed by me
Labs: Labs Reviewed by me
Old Records: Reviewed
[2024-07-08] MEDS: VITAMIN C 500 MG PO (21:16)
[2024-07-09] VITALS (13 sets, daily range): BP systolic 120–154; BP diastolic 65–101; BMI 33.8
--- NOTE | 2024-07-09 00:19 | PTCARENOTE ---
Rec'd pt as ED admit. Pt AAOx3, denies chest pain/tightness, denies any pain/discomfort at this time. Heparin gtt intact through L AC IV, see worklist. Pt ambulatory in room PRN with minimal assistance. EKG done with troponin per MD orders. VSS.
Call hackett within reach. Care ongoing.
[2024-07-09 00:36] LABS: APTT 36.9 Sec (23.4-35.0)
[2024-07-09 06:39] LABS: APTT 43.9 Sec (23.4-35.0)
[2024-07-09 06:57] LABS: HDL Cholesterol 30 mg/dl
[2024-07-09 07:07] LABS: LDL Cholesterol, Calculated 68 mg/dl; Total Cholesterol 119 mg/dl (50-199); Triglyceride 108 mg/dl (10-149); Very Low Density Lipoprotein 21 mg/dl (0-30)
[2024-07-09] MEDS: ZETIA 10 MG PO (08:27)
[2024-07-09] MEDS: NORVASC 5 MG PO (08:27)
[2024-07-09] MEDS: THERAGRAN 1 TABLET PO (08:27)
[2024-07-09] MEDS: ZESTRIL 40 MG PO (08:27)
[2024-07-09] MEDS: PEPCID 20 MG PO (08:27)
[2024-07-09] MEDS: LIPITOR 80 MG PO (08:28)
[2024-07-09] MEDS: LOW STRENGTH ASPIRIN 81 MG PO (08:28)
[2024-07-09 08:55] LABS: Glycohemoglobin (HgbA1c) 5.7 % (4.0-5.6)
--- NOTE | 2024-07-09 10:29 | PTCARENOTE ---
Assumed care of patient this morning. He is aaox3. Denies any chest pain or throat tightness. ECHO done at bedside. Pt's HR dropping into 40s at times when architectural technologist asked patient to hold his breath. Heparin infusion maintained, see flowsheet.
Patient to be transferred to IVU, report given.
--- NOTE | 2024-07-09 11:33 | PTCARENOTE ---
Rec'd pt from IMU. Oriented pt to room. AOX3 and pleasant. Tele- SB/SR. 50-60s. Assessment completed as documented. Heparin gtt infusing at 14ml/hr. Pt aware of NPO status for cath today. Currently in bed; call roxann w/in reach.
--- NOTE | 2024-07-09 12:16 | W.PN.HOSP.TC ---
Today's Communication/Plan
-
N.p.o. for cardiac catheterization
Continue with goal-directed medical therapy
Continue with aspirin
Await further cardiac catheterization results
Cardiology recs
Assessment / Plan
Assessment / Plan
#Unstable angina/NSTEMI
-Heparin drip continued
-Chest x-ray negative for acute disease
-EKG with sinus bradycardia
-Aspirin continued
-ECHO ventricular chamber size and function. EF 69%. Possible inferior wall hypokinesis. Normal diastolic function. Mild to moderate mitral regurgitation
-Cardiology consulted
-Cardiac catheterization today
-LDL 68. A1c 5.7
-Trop downtrended
# Essential hypertension
-Norvasc, lisinopril continue with hold parameters
# Hyperlipidemia
-Zetia and atorvastatin continued
CAD status post stents x 2
Continue with aspirin, Zetia, blood pressure control
Plavix per cardiology
History of sinus bradycardia
Monitor heart rate on telemetry
History of tobacco abuse
# DVT prophylaxis
-Heparin drip-
# CODE STATUS
-Full code
Discussed with patient spouse at bedside in detail
Anticipated Discharge: > 48 hours
Subjective/Interval History
-
Date of Service: July 09, 2024
denies any throat closing or chest pain
Objective Data
-
Labs:
Laboratory Results
07/09/24 07/09/24 07/09/24
00:12 06:21 12:45
APTT 36.9 H 43.9 H Pending
Vital Signs:
Vital Signs
Temp Pulse Resp BP Pulse Ox
98.2 F 63 16 130/89 97
07/09/24 11:22 07/09/24 11:23 07/09/24 11:22 07/09/24 11:23 02/12/25 11:23
I&O
07/08/24 07/09/24 07/10/24
06:59 06:59 06:59
Intake Total 144 / 144
Balance 144 / 144
Physical Exam
-
General: Well Developed and No Apparent Distress
HEENT: Normocephalic, Atraumatic and Moist Mucous Membranes
Respiratory: Clear to Auscultation
Cardiac: Regular Rhythm and S1/S2; Negative Murmur, Rub or Gallop
GI: Soft, Nontender, Nondistended and Normal Bowel Sounds; Negative Organomegaly
Rectal: Deferred by Provider
Musculoskeletal: No Clubbing, No Cyanosis and No Edema
Skin: Negative Rash
Neuro: Awake, AO x 3, No Motor Deficits and Nonfocal/Grossly Intact
Psych: Calm
[2024-07-09] MEDS: VITAMIN C 500 MG PO ×2 (13:10→20:22)
--- NOTE | 2024-07-09 13:39 | CM ---
Chart reviewed. Patient is independent of ADLS, lives with his in a 2 [address], 5 LUIS, 0 DME. Patient waiting for a cardiac cath. Plan is for the patient to return home. CM to follow
[2024-07-09 13:43] LABS: APTT 46.8 Sec (23.4-35.0)
[2024-07-09 16:10] LABS: ACT-LR - POC 285 Seconds (116-155)
[2024-07-09 16:38] LABS: ACT-LR - POC 303 Seconds (116-155)
--- NOTE | 2024-07-09 17:07 | ITS.CL.CATH ---
[employer] [facility] - Catheterization
Cardiac Catheterization
Procedure Report:
LEFT HEART CATHETERIZATION AND CORONARY INTERVENTION
Date of Procedure: July 09, 2024
Referring: Yung Martinez
PROCEDURES:
1. Left heart catheterization, coronary angiogram.
2. Ultrasound-guided access
3. Successful percutaneous coronary artery intervention of hazy, thrombotic 90% proximal to mid RCA (JOSH II flow) with 2 overlapping 3.5 x 30 mm and 2.75 x 22 mm Medtronic Washburn drug-eluting stent, postdilated with a 3.5 x 20 mm NC balloon at 18
uriah proximally and 3.0 x 20 mm NC balloon at 18 uriah distally using IVUS guidance with an excellent angiographic result and JOSH-3 flow restored.
4. Intravascular ultrasound (IVUS)
INDICATION: NSTEMI
ACCESS: Right radial artery, 6 Haitian sheath, under ultrasound guidance
Ultrasound was utilized for vascular access. The radial artery was visualized under ultrasound, and the vessel was patent and pulsatile. An image was stored permanently in the patient's medical record. Under direct ultrasound guidance, a 6 Haitian
sheath was inserted into the artery using a micropuncture kit through a modified Seldinger technique.
HEMODYNAMICS : (mmHg)
AO (s/d) : 120/93
LV (s/d) : 127/4
LVEDP :14
CORONARY FINDINGS
DOMINANCE: Right
LEFT MAIN: The left main artery is a large-caliber vessel with mild 20 to 30% distal tapering as he gives rise to the left into descending artery and the left circumflex artery. Otherwise there is minimal luminal irregularities.
LEFT ANTERIOR DESCENDING: The left into descending artery is a medium to large caliber vessel which gives rise to 2 major diagonal branches as it courses to the anterior interventricular groove and wraps around the apex. Previously placed mid LAD
stents and mid diagonal stents are widely patent.
CIRCUMFLEX: The left circumflex artery is a medium caliber vessel which gives rise to 2 major obtuse marginal branches. There is minimal luminal irregularities.
RIGHT CORONARY ARTERY: The right coronary artery is a medium to large caliber, dominant vessel which gives rise to the right posterior descending artery and the right posterolateral system. There is a hazy, thrombotic 90% proximal to mid RCA
stenosis with JOSH II flow which is the likely culprit for presenting NSTEMI and intervention was performed as noted below.
CORONARY INTERVENTION: Decision was made to proceed with intervention to the right coronary artery. The right coronary artery was selectively engaged using a 6 Haitian JR4 guide catheter. Additional heparin was given to maintain a therapeutic ACT
throughout the case. We used a 190 cm 0.014' run-through coronary wire which was advanced into the distal vessel with some difficulty. We predilated the lesion using a 2.5 x 15 mm semicompliant balloon with multiple inflations. Given the
thrombotic nature of the lesion, and the fact that patient was not on a second antiplatelet agent, we also gave him a double bolus of Integrilin. We initially stented the proximal lesion with a 3.5 x 30 mm Medtronic Washburn drug-eluting stent. Just
distal to the stent haziness persisted and therefore this was covered with a overlapping 2.75 x 22 mm Medtronic Estrada drug-eluting stent. Using JobSlot Grainger eye IVUS catheter we postdilated the stents with a 3.0 x 20 mm NC balloon at 18 uriah
distally and a 3.5 x 20 mm NC balloon at 18 uriah proximally with an excellent angiographic and IVUS based result. Patient was loaded with 180 mg of Brilinta at the end of the case. He tolerated the procedure well with no acute complications.
SEDATION: 99 minutes of procedural sedation was utilized. An independent medical records auditor was present to assist with and help manage the patient's level of consciousness and physiologic status.
RADIATION SUMMARY: Fluoro Time (min): 17.7, Dose (mGy): 1044.8, DAP (Gy.cm2) : 77.0
Closure Device: Vascular band over right radial artery, 10 cc of air.
CONCLUSIONS
1. Successful percutaneous coronary artery intervention of hazy, thrombotic 90% proximal to mid RCA (JOSH II flow) with 2 overlapping 3.5 x 30 mm and 2.75 x 22 mm Medtronic Washburn drug-eluting stent, postdilated with a 3.5 x 20 mm NC balloon at 18
uriah proximally and 3.0 x 20 mm NC balloon at 18 uriah distally using IVUS guidance with an excellent angiographic result and JOSH-3 flow restored.
2. Mid LAD and mid D2 stents from 2020 are widely patent.
3. High normal LVEDP at 14 mmHg.
RECOMMENDATIONS
1. Uninterrupted dual antiplatelet therapy with daily baby aspirin and Brilinta 90 mg twice daily along with high intensity statin and beta-kuldip as tolerated.
2. Wean radial band per protocol.
3. Aggressive management of cardiovascular risk factors.
4. Referral for outpatient cardiac rehab.
Anita Stevenson MD, FAC, [facility]
Copy to: Yung Martinez
[2024-07-09] MEDS: TYLENOL 650 MG PO (17:27)
--- NOTE | 2024-07-09 21:05 | PTCARENOTE ---
Pt received at change of shift. Pt seen and assessed in room. Pt AOx3, at bedside. When assuming care, TR band still present on R radial. Air to be taken out starting at 1902. Air taken out per protocol. TR band off at 2030, gauze and tegaderm
over site. This RN discussed kimb restrictions and plan of care. Pt and verbalize understanding. Call hackett within reach. Continuing to monitor at this time.
[2024-07-09 21:26] LABS: Glucose - Point of Care 137 mg/dl (70-99)
[2024-07-10 04:01] VITALS: BP 140/80
[2024-07-10 04:03] VITALS: BP 140/80; BMI 34.5
[2024-07-10 04:29] LABS: % Basophils 0.3 % (0-2); % Eosinophils 2.7 % (0-6); % Immature Granulocytes 0.3 % (0-0.5); % Lymphocytes 15.1 % (20.5-51.1); % Monocytes 6.7 % (1.7-9.3); % Neutrophils 74.9 % (42.2-75.2); Absolute Eosinophils 0.2 10^3/uL (0-0.7); Absolute Lymphocytes 1.1 10^3/uL (1.2-3.4); Absolute Monocytes 0.5 10^3/uL (0.1-0.6); Absolute Neutrophils 5.5 10^3/uL (1.4-6.5); Hematocrit 36.7 % (39.0-52.0); Hemoglobin 12.7 g/dL (13.0-18.0); Mean Corp Hgb Conc. 34.6 g/dL (33.0-37.0); Mean Corpuscular Hgb 29.3 pg (27.0-31.0); Mean Corpuscular Volume 84.8 fL (80.0-94.0); Mean Platelet Volume 9.6 fL (7.4-10.4); Nucleated Red Blood Cells % 0 % (-); Platelet Count 191 10^3/uL (130-400); Red Blood Cell Count 4.33 10^6/uL (4.70-6.10); Red Cell Dist. Width 12.1 % (11.5-14.5); White Blood Cell Count 7.3 10^3/uL (4.8-10.8)
[2024-07-10 04:56] LABS: Blood Urea Nitrogen 24 mg/dl (9-20); Calcium 8.8 mg/dl (8.4-10.2); Carbon Dioxide 22 mmol/L (22-30); Chloride 109 mmol/L (98-107); Estimated Creatinine Clearance 88 ml/min; Glucose 108 mg/dl (70-99); Sodium 140 mmol/L (135-145); eGFR > 60.00
[2024-07-10 08:01] VITALS: BP 163/88
--- NOTE | 2024-07-10 09:00 | PTCARENOTE ---
Assumed care of pt from prev nsg shift AAOX3 w/no c/o CP or SOB. Pt's VSS w/HR in the 50's-60's & BP 163/88 this AM. Pt is SB/SR on satellite project site monitor. Pt's AM BP meds administered as ordered. Pt's R radial site w/dressing C/D/I, no signs or symptoms
of bleeding or hematoma. This RN removed dressing & site is intact. Pt anticipating D/C this AM. Pt w/call hackett within reach & plan of care ongoing.
[2024-07-10] MEDS: ZETIA 10 MG PO (09:17)
[2024-07-10] MEDS: LOW STRENGTH ASPIRIN 81 MG PO (09:17)
[2024-07-10] MEDS: LIPITOR 80 MG PO (09:17)
[2024-07-10] MEDS: NORVASC 5 MG PO (09:17)
[2024-07-10] MEDS: ZESTRIL 40 MG PO (09:17)
[2024-07-10] MEDS: THERAGRAN 1 TABLET PO (09:17)
[2024-07-10] MEDS: BRILINTA 90 MG PO (09:17)
[2024-07-10] MEDS: PEPCID 20 MG PO (09:18)
[2024-07-10] MEDS: VITAMIN C 500 MG PO (09:18)
--- NOTE | 2024-07-10 09:29 | W.PN.CARDCBS ---
Addendum entered and electronically signed by Perla Vásquez DO 07/10/24 14:37:
I saw and examined the patient.
The Delivery Crew Worker's note was reviewed and I agree with the note.
Comment: Patient seen and examined with at bedside. Feels well this morning and is ambulating around unit without symptoms. Denies chest pain or pressure, shortness of breath, or dizziness. No jaw pain. No wrist pain.
General: No acute distress, AAOX3
Neck: Negative JVD
Heart: Regular, Negative S3 positive S1/S2, No murmur
Lungs: CTA b/l, negative wheezes/rales/rhonchi
Abd: Positive BS, NT/ND, neg rebound/rigidity/guarding
Ext: no edema. right radial site c/d/i
Echo 07/09/2024: EF 69%, possible inferior wall hypokinesis, mild to moderate MR
Plan:
-Unstable angina/ACS with NSTEMI
-patient with throat tightness with exertion at increasingly lower levels of activity for years to months leading up to admission, but symptoms were dramatically worse in the week leading up to visit with PCP and subsequent visit with cardiology [facility]
in the office on Sunday. I
-Initial troponin elevated at 3.4 in ER
-[facility] 06/08/24: patent previously placed Diag-1 and proximal to mid LAD stents from 2020. There was a new 90% hazy thrombotic lesion in the proximal to mid RCA that underwent successful PTCA and stenting with overlapping 3.5 and 2.75 mm Estrada OLGA.
-Outpatient dose of aspirin was continued
-New to Brilinta 90 mg BID and will ask CM to check on availability at his pharmacy prior to D/C
-Outpatient dose of lisinopril 40 mg daily has been continued
-Outpatient dose of amlodipine 5 mg daily has been continued
-Patient was not taking a BB prior to admission due to h/o bradycardia. ECG as low as 49 without BB. Will not add BB at this time.
-LDL 60 and outpatient dose of atorvastatin 80 mg daily plus Zetia 10 mg daily has been continued
-Stable for d/c to home
Original Note:
Today's Communication / Plan
-
New to Brilinta
Will not add BB due to resting bradycardia with HR 49 on ECG earlier this admission
e-scribed Brilinta for continuity of care
52 min in face to face and coordination of care
Impression / Plan
-
PCP: Nieves Oro
Card: Dr. Martinez
Impression:
NSTEMI, peak Troponin 4.12
CAD
s/p 2.25 mm Xience OLGA to the Diag-1 11/18/20
s/p 3.25 mm Xience OLGA to the proximal to mid LAD 11/18/20
s/p overlapping 3.5 mm and 2.75 mm Bullock OLGA to the proximal to mid RCA 07/09/24
Hypertension
Hyperlipidemia
Prior tobacco abuse
Echo 07/09/2024: EF 69%, possible inferior wall hypokinesis, mild to moderate MR
Plan:
-Patient with throat tightness with exertion at increasingly lower levels of activity for years to months leading up to admission, but symptoms were dramatically worse in the week leading up to visit with PCP and subsequent visit with cardiology [facility]
in the office on Sunday. Initial troponin elevated at 3.4 in ER and patient then had cardiac cath 07/09/2024.
-Patient with patent previously placed Diag-1 and proximal to mid LAD stents from 2020. There was a new 90% hazy thrombotic lesion in the proximal to mid RCA that underwent successful PTCA and stenting with overlapping 3.5 and 2.75 mm Estrada OLGA.
-Outpatient dose of aspirin was continued
-New to Brilinta 90 mg BID and will ask CM to check on availability at his pharmacy prior to D/C
-Outpatient dose of lisinopril 40 mg daily has been continued
-Outpatient dose of amlodipine 5 mg daily has been continued
-Patient was not taking a BB prior to admission due to h/o bradycardia. ECG as low as 49 without BB. Will not add BB at this time.
-LDL 60 and outpatient dose of atorvastatin 80 mg daily plus Zetia 10 mg daily has been continued
-Stable for d/c to home
Progress Note - Lead Mobile Developer
Subjective
Date of Service: July 10, 2024
Feels well, no more throat tightness
Objective
Labs:
07/10/24 04:10
07/10/24 04:10
Labs
Hgb 12.7 g/dL (13.0-18.0) L 07/10/24 04:10
Hct 36.7 % (39.0-52.0) L 07/10/24 04:10
Plt Count 191 10^3/uL (130-400) 07/10/24 04:10
PT 13.3 Sec (11.4-14.6) 07/08/24 15:55
INR 0.98 07/08/24 15:55
APTT Cancelled 07/09/24 20:49
Sodium 140 mmol/L (135-145) 07/10/24 04:10
Potassium 4.0 mmol/L (3.5-5.1) 07/10/24 04:10
BUN 24 mg/dl (9-20) H 07/10/24 04:10
Creatinine 1.0 mg/dL (0.7-1.3) 07/10/24 04:10
Glucose 108 mg/dl (70-99) H 07/10/24 04:10
Troponins
07/08/24 07/08/24 07/08/24
15:55 19:24 22:13
Troponin I 3.640 H* 4.120 H* 3.780 H*
Vital Signs and I&O:
Vital Signs
Temp Pulse Resp BP Pulse Ox
98.8 F 64 20 163/88 94
07/10/24 08:01 07/10/24 08:01 07/10/24 08:01 07/10/24 08:01 07/10/24 08:01
Vital Signs
Temp Pulse Resp BP Pulse Ox
98.8 F 64 20 163/88 94
07/10/24 08:01 07/10/24 08:01 07/10/24 08:01 07/10/24 08:01 07/10/24 08:01
Intake & Output
07/08/24 07/09/24 07/10/24 07/11/24
06:59 06:59 06:59 06:59
Intake Total 144 / 144 1365 / 1365
Output Total 800 / 800
Balance 144 / 144 565 / 565
Physical Exam
Physical Exam
GEN: NAD. AAOx3
HEENT: EOMI, MMM
LUNGS: RA. No audible wheeze
CV: SR on tele. Reg, no murmur
ABD: ND
EXT: No edema B/L. Right radial without hematoma
NEURO: Gross non-focal
SKIN: No rash
[2024-07-10 11:29] VITALS: BP 143/88
--- NOTE | 2024-07-10 11:50 | W.PN.HOSP.TC ---
Today's Communication/Plan
-
po asa/brilianta
OP cards f/u
Assessment / Plan
Assessment / Plan
#Unstable angina/NSTEMI
#CAD status post stents x 2
Continue with aspirin, Zetia, blood pressure control
-Heparin drip discontinued
-Chest x-ray negative for acute disease
-EKG with sinus bradycardia
-Aspirin continued
-ECHO ventricular chamber size and function. EF 69%. Possible inferior wall hypokinesis. Normal diastolic function. Mild to moderate mitral regurgitation
-Cardiology consulted
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
-Brilinta added to aspirin.
-Unable to do beta-kuldip due to history of bradycardia
-LDL 68. A1c 5.7
-Cardiology recs.
# Essential hypertension
-Norvasc, lisinopril continue with hold parameters
# Hyperlipidemia
-Zetia and atorvastatin continued
History of sinus bradycardia
Monitor heart rate on telemetry
History of tobacco abuse
# DVT prophylaxis
-Heparin drip-
# CODE STATUS
-Full code
Discussed with patient spouse at bedside in detail daily basis
More than 30 minutes spent in discharge including
Final examination of the patient
Summarizing hospital stay
Instructions for continuing care to all relevant caregivers
Preparation of discharge records, prescriptions, and referral forms
Total time spent (in minutes): 52
Anticipated Discharge: Today
Subjective/Interval History
-
Date of Service: July 10, 2024
Had mild shortness of breath which resolved
Denies any throat pain or chest pain
Ambulating in the room without any difficulty
Denies any right wrist pain no swelling.
Objective Data
-
Labs:
Laboratory Results
07/10/24
04:10
WBC 7.3
Hgb 12.7 L
Hct 36.7 L
Plt Count 191
Sodium 140
Potassium 4.0
Chloride 109 H
Carbon Dioxide 22
BUN 24 H
Creatinine 1.0
Glucose 108 H
Calcium 8.8
Vital Signs:
Vital Signs
Temp Pulse Resp BP Pulse Ox
98.1 F 64 18 163/88 99
07/10/24 11:29 07/10/24 08:01 07/10/24 11:29 07/10/24 08:01 07/10/24 11:29
I&O
07/09/24 07/10/24 07/11/24
06:59 06:59 06:59
Intake Total 144 / 144 1365 / 1365 960 / 960
Output Total 800 / 800
Balance 144 / 144 565 / 565 960 / 960
Physical Exam
-
General: Well Developed and No Apparent Distress
HEENT: Normocephalic, Atraumatic and Moist Mucous Membranes
Respiratory: Clear to Auscultation
Cardiac: Regular Rhythm and S1/S2; Negative Murmur, Rub or Gallop
GI: Soft, Nontender, Nondistended and Normal Bowel Sounds; Negative Organomegaly
Rectal: Deferred by Provider
Musculoskeletal: No Clubbing, No Cyanosis and No Edema
Skin: Negative Rash
Neuro: Awake, AO x 3, No Motor Deficits and Nonfocal/Grossly Intact
Psych: Calm
--- NOTE | 2024-07-10 11:56 | W.DCSUMMARY ---
Discharge Summary
Discharge Data
Date of Admission: 07/08/24
Date of Discharge: 07/10/24
-
Pending Results: No
Hospital Course
59-year-old male past medical history of CAD status post stents x 2, history of sinus bradycardia, history of tobacco abuse, hypertension, hyperlipidemia who is presenting from cardiology office with abnormal EKG and also with complaint of chest
pain/throat pain with exertion. Patient initially went to primary doctor EKG was found to be abnormal and was referred to cardiology. Cardiology referred patient to the ER. Patient was found to elevated troponin and was started on heparin
infusion. Chest x-ray was negative for acute pathology. Underwent echocardiogram ECHO ventricular chamber size and function. EF 69%. Possible inferior wall hypokinesis. Normal diastolic function. Mild to moderate mitral regurgitation. Patient
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 Patient was started on Brilinta. Postprocedure patient without any difficulty. Patient was ambulating without difficulty. Patient be
discharged on dual antiplatelet agents with outpatient close cardiology follow-up.
Discharge Plan
-
Patient Disposition: Home (Routine Discharge)
Discharge Diagnosis/Procedures: NSTEMI status post angioplasty with stent to RCA x2
Condition: Fair
Diet: Low Cholesterol
Driving Restrictions: No driving for 24 hours
Bathing Restrictions: OK to Shower
Other Services: Cardiac Rehab
Stand Alone Forms: DC Instructions- Cath/EP Lab
Referrals:
[facility]. Cardiac Rehab [Outside] - 08/01/24 1:00 pm
(Cardiac Rehab Orientation appointment is on August 01 at 1pm.
The Cardiac Rehab gym is located on the first floor of the [facility].)
Talha Martinez MD [Active] - 07/28/24 12:40 pm
Nieves Oro CRNP [Family Provider] - in less than 1 week
Additional Discharge Medication Instructions: -Start taking Brilinta 90 mg twice a day
Prescriptions:
New
Brilinta 90 mg Tablet
90 mg PO BID Qty: 60 11RF
Continued
aspirin 81 MG tablet,delayed release (DR/EC)
81 mg PO DAILY
amlodipine 5 MG tablet
5 mg PO DAILY Qty: 30 5RF
lisinopril 40 MG tablet
40 mg PO DAILY Qty: 30 5RF
therapeutic multivitamin Tablet
1 tab PO DAILY
ascorbic acid (vitamin C) [Vitamin C] 500 mg Tablet
500 mg PO BID
ezetimibe 10 mg Tablet
10 mg PO DAILY
omega 0-jlg-wtp-fish oil [Fish Oil] 1,000 (120-180) mg Capsule
1 cap PO TID
vitamin D3-vitamin K2 (MK4) 1,000-100 unit-mcg Tablet
1 tab PO BID
Glucosamine Chondroitin 550-30-1 mg Capsule
1 cap PO BID
atorvastatin 80 MG tablet
80 mg PO DAILY
Discharge Orders:
Discharge Patient (As Directed); Ordered 07/10/24
Ordered By: Ever Dejesus
Care Plan Goals
Care Plan Goals:
Problem: Readiness for enhanced knowledge related to diagnosis and treatment plan
Goal: Understand your diagnosis and treatment plan needs, including medications if applicable.
Instructions: Know your diagnosis, underlying causes and treatment plan options, including medications if applicable. Consult with your health care team to learn about your diagnosis and treatment plan, including medications if applicable.
Discharge Date and Time
Discharge Date/Time: 07/10/24 12:56
Print Language: FIJIAN
--- NOTE | 2024-07-10 12:45 | PTCARENOTE ---
Pt's bilat AC IV lines D/C'd & cinema operator removed. D/C instructions discussed w/pt & pt's spouse. 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 Pt escorted out by staff w/spouse driving pt home.
--- NOTE | 2024-07-10 13:06 | CM ---
Pricing on Brilinta is $35 a month through the patient's prescription plan. Patient qualifies for $5 copay card. Patient's brilinta is not available at patient's [facility]. Script sent to [facility] in [place] where it is in stock. Patient is agreeable and
understands.
== END 2024-07-10 12:56 | disposition home or self-care (01) | DRG 322 ==
LOC: IVU 18:43
PROVIDERS: Internal Medicine Interventional Cardiology; Registered Nurse; ADMITTING PHYSICIAN Hospitalist; EMERGENCY PHYSICIAN Student in an Organized Health Care Education/Training Program; FAMILY PHYSICIAN Nurse Practitioner; REFERRING PHYSICIAN Internal Medicine Cardiovascular Disease
PROC: 4A023N7 Measurement of Cardiac Sampling and Pressure, Left Heart, Percutaneous Approach (ICD-10-PCS; 2024-07-09)
PROC: 027035Z Dilation of Coronary Artery, One Artery with Two Drug-eluting Intraluminal Devices, Percutaneous Approach (ICD-10-PCS; 2024-07-09)
PROC: B240ZZ3 Ultrasonography of Single Coronary Artery, Intravascular (ICD-10-PCS; 2024-07-09)
PROC: B211YZZ Fluoroscopy of Multiple Coronary Arteries using Other Contrast (ICD-10-PCS; 2024-07-09)
DX: I21.4 Non-ST elevation (NSTEMI) myocardial infarction (principal); I34.0 Nonrheumatic mitral (valve) insufficiency; I10 Essential (primary) hypertension; I25.10 Atherosclerotic heart disease of native coronary artery without angina pectoris; F17.210 Nicotine dependence, cigarettes, uncomplicated; E78.00 Pure hypercholesterolemia, unspecified; Z79.82 Long term (current) use of aspirin; Z79.02 Long term (current) use of antithrombotics/antiplatelets; Z79.899 Other long term (current) drug therapy; Z82.49 Family history of ischemic heart disease and other diseases of the circulatory system; Z95.5 Presence of coronary angioplasty implant and graft
CPT/HCPCS: 71045; 76937; 80048; 80053; 80061; 82962; 83036; 84484; 85025; 85610; 85730; 92978; 93005; 93306; 93458; 99152; 99153; 99291; C1725; C1874; C1894; C9600; J1327; Q9967

== ENCOUNTER 2024-09-22 08:41 | Outpatient (RCR) | payer BC, SELFPAY | END 2024-09-22 23:59 | disposition home or self-care (01) | LOC: CRHB 08:41 | PROVIDERS: ATTENDING PHYSICIAN Internal Medicine Cardiovascular Disease; FAMILY PHYSICIAN Nurse Practitioner | DX: I25.10 Atherosclerotic heart disease of native coronary artery without angina pectoris (principal); I21.4 Non-ST elevation (NSTEMI) myocardial infarction (principal); I25.2 Old myocardial infarction; Z95.5 Presence of coronary angioplasty implant and graft | CPT/HCPCS: 93797; 93798 ==

== ENCOUNTER 2024-10-01 08:53 | Outpatient (RCR) | payer BC, SELFPAY | END 2024-10-01 23:59 | disposition home or self-care (01) | LOC: CRHB 08:53 | PROVIDERS: ATTENDING PHYSICIAN Internal Medicine Cardiovascular Disease; FAMILY PHYSICIAN Nurse Practitioner | DX: I21.4 Non-ST elevation (NSTEMI) myocardial infarction (principal); Z95.5 Presence of coronary angioplasty implant and graft; I25.10 Atherosclerotic heart disease of native coronary artery without angina pectoris; I25.2 Old myocardial infarction | CPT/HCPCS: 93798 ==